=== PATIENT | female | born 1960 | race Caucasian/White ===

== ENCOUNTER → 2022-05-21 | Day surgery (SDC) | payer OTHER ==
--- NOTE | 2022-05-19 13:17 | RAD REPORT ---
EXAM DESCRIPTION: RAD - Chest Pa And Lat (2 Views) - 05/19/2022 1:10 pm CLINICAL HISTORY: pre op for surgery COMPARISON: No comparisons FINDINGS: Lines: None. Lungs: No evidence of edema or pneumonia. Pleural: No significant pleural effusions or pneumothorax. Cardiac: The heart size is within normal limits. Mediastinum: Within normal limits. Bones: No acute fractures. Other: None IMPRESSION: No acute cardiopulmonary disease.
[2022-05-19 13:45] LABS: Absolute Lymphocytes (CBC) 2.8 K/uL (0.7-4.9); Hematocrit 34.9 % (36.0-45.0); Lymphocytes % 40.4 % (15.3-44.8); MCV 78.8 fL (80-100); MPV 7.2 fL (7.6-11.3); RBC Red Blood Cell Count 4.43 M/uL (3.86-4.86)
[2022-05-19 13:48] LABS: Protime INR 0.97
--- NOTE | 2022-05-19 14:55 | EKG ---
Test Date: 2022-05-19 Test Time: 12:49:23 Rn Case Manager: TOYA MEASUREMENT RESULTS: Intervals: Rate: 54 IL: 158 QRSD: 90 QT: 440 QTc: 417 [place]: P: 23 IL: 158 QRS: 8 T: 24 INTERPRETIVE STATEMENTS: Sinus bradycardia Otherwise normal ECG Compared to ECG 03/09/2017 08:24:58 Sinus rhythm no longer present Sinus arrhythmia no longer present Electronically Signed On 05-19-22 14:54:45 [employer]STRUCTION [employer] by Yash Stearns
[~2022-05-21] MED LIST: BUPIVACAINE 0.25% PF 10 ML VIAL ONE; CEFAZOLIN SODIUM 1 GM/VIAL ONE; CEFAZOLIN SODIUM 2 GM/VIAL ONE; CODEINE 30MG/APAP 300MG TAB ONE; FENTANYL CITR 100 MCG/2 ML ONE; KETOROLAC 30 MG/ML INJ ONE; LIDOCAINE 1% MPF 5 ML VIAL ONE; MIDAZOLAM HCL 2 MG/2 ML INJ ONE; NS 0.9% VIAL 10 ML ONE; ONDANSETRON 4 MG/2 ML VIAL ONE; Ringers Lactate 1,000 ML IV ONE; SUCCINYLCHOLINE 20 MG/ML (10 ML) IV ONE; dexAMETHasone 10 MG/ML VIAL ONE; propofoL 200 MG/20 ML VIAL IV ONE
[2022-05-21] MEDS: HYDROMORPHONE HCL 1 MG/ML INJ ONE ×4 (12:34→12:50)
--- NOTE | 2022-05-21 12:38 | P.BOP ---
Preoperative diagnosis: right middle and ring finger trigger digits Postoperative diagnosis: same Primary procedure: right middle finger A1 maria esther release Secondary procedure: right ring finger A1 maria esther release Roller Picker: NONE,NONE Estimated blood loss: 3 cc Specimen: none Findings: see dictation Anesthesia: General Complications: None Implants: none Fluids & blood products: per anesthesia record; TT: 16 mins @ 250 mmHg Transferred to: Recovery Room Condition: Good
[2022-05-21 12:54] VITALS: TEMP 97.3
[2022-05-21 13:40] VITALS: BP 153/95; O2SAT 97
== END ==
LOC: OR 09:04
PROVIDERS: ATTEND Orthopaedic Surgery Sports Medicine
PROC: 0LN70ZZ Release Right Hand Tendon, Open Approach (ICD-10-PCS; 2022-05-21)
PROC: 0LN70ZZ Release Right Hand Tendon, Open Approach (ICD-10-PCS; principal; 2022-05-21 11:00)
DX: M65.331 Trigger finger, right middle finger (principal); M65.341 Trigger finger, right ring finger
CPT/HCPCS: 93005; 85025; 80048; 36415; 85610; 85730; 71046; 26055 ×2; J2704 ×2; J0330; J2001; J2250; J3010; J1100; A4216; J1170 ×2; J7120; J2405; J0690

== ENCOUNTER 2024-01-10 23:35 | Emergency (ER) | payer OTHER, SELFPAY ==
[2024-01-10] MEDS ORDERED: TDAP (DIPHTH,PERTUSS(ACELL),TET VAC) 0.5 ML VIAL IMVAC ONE (23:44)
[2024-01-10] MEDS ORDERED: DIAZEPAM 5 MG TABLET ONE (23:44)
[2024-01-10] MEDS ORDERED: LIDOCAINE 1% 20 ML MDV ONE (23:44)
[2024-01-10] MEDS ORDERED: NA CHLORIDE 0.9% 100 ML ONE (23:45)
[2024-01-10] MEDS ORDERED: CEFAZOLIN SODIUM 2 GM/VIAL ONE (23:45)
[2024-01-11 00:07] LABS: Absolute Basophils 0.1 K/uL (0-0.5); Absolute Eosinophils 0.2 K/uL (0-0.5); Absolute Lymphocytes (CBC) 3.5 K/uL (0.7-4.9); Absolute Monocytes 0.7 K/uL (0.1-1.3); Absolute Neutrophil 3.7 K/uL (1.8-8.0); Basophils % 1.1 % (0-1.3); Hematocrit 36.3 % (36.0-45.0); Hemoglobin 12.2 g/dL (12.0-15.0); Lymphocytes % 42.6 % (15.3-44.8); MCH 28.2 pg (27.0-35.0); MCHC 33.5 g/dL (32.0-36.0); MCV 84.1 fL (80-100); MPV 7.1 fL (7.6-11.3); Monocytes % 8.7 % (3.3-12.3); Neutrophils % 45.6 % (41.7-73.7); Nucleated Red Blood Cells % 0.2 % (0-0); Platelets 316 thou/uL (152-406); RBC Red Blood Cell Count 4.31 M/uL (3.86-4.86); Red Cell Distribution Width 17.4 % (12.1-15.2)
[2024-01-11 00:21] LABS: ALT/SGPT 24 U/L (13-56); AST/SGOT 27 U/L (15-37); Albumin 3.2 g/dL (3.4-5.0); Albumin/Globulin Ratio 0.7 (1.1-1.8); Alkaline Phosphatase 100 U/L (45-117); Anion Gap 12.1 mEq/L (5.0-15.0); BUN Blood Urea Nitrogen 7 mg/dL (7-18); Bicarbonate 23 mEq/L (21-32); Bilirubin Total 0.3 mg/dL (0.2-1.0); Globulin 4.3 g/dL (2.3-3.5); Glomerular Filtration Rate 81 ml/min (=/>90); Glucose Level 126 mg/dL (74-106); PTT, Activated Partial Thromb 26.6 SECONDS (24.3-36.9); Potassium 4.1 mEq/L (3.5-5.1); Protein, Total 7.5 g/dL (6.4-8.2); Protime INR 0.98; Sodium Level 131 mEq/L (136-145)
[2024-01-11 00:22] LABS: Bilirubin Direct < 0.2 mg/dL (0-0.2); Bilirubin Indirect, Calculated 0.1 mg/dL (0.2-0.8)
[2024-01-11] MEDS ORDERED: ACETAMINOPHEN 500 MG TAB ONE (00:47)
[2024-01-11] MEDS ORDERED: ONDANSETRON 4 MG/2 ML VIAL ONE (00:47)
[2024-01-11] MEDS ORDERED: MECLIZINE HCL 12.5 MG TAB ONE (02:16)
[2024-01-11 02:34] LABS: Renal Epithelial <5 /HPF (None Seen); Specific Gravity 1.009 (1.005-1.030); Sqamous Epithelial None Seen /HPF (None Seen); Urine Bacteria None Seen /HPF (<20); Urine Bilirubin NEGATIVE (Negative); Urine Blood Negative (Negative); Urine Clarity Clear (Clear); Urine Color Light-Yellow (Yellow); Urine Culture Reflex Order NOT NEEDED; Urine Glucose NEGATIVE (Negative); Urine Ketones NEGATIVE (Negative); Urine Microscopic Reflex YN ORDER UMIC; Urine Mucus Slight /HPF (None Seen); Urine Nitrite NEGATIVE (Negative); Urine Protein NEGATIVE (Negative); Urine RBC None Seen /HPF (None Seen); Urine Urobilinogen Normal (Normal); Urine WBC <5 /HPF (<5); Urine pH 5.5 (5.0-7.0)
[2024-01-11 02:52] LABS: Barbiturates NEGATIVE (NEGATIVE); Benzodiazepines POSITIVE (NEGATIVE); Cocaine NEGATIVE (NEGATIVE); METHAMPHETAM NEGATIVE (NEGATIVE); Methadone NEGATIVE (NEGATIVE); Opiates NEGATIVE (NEGATIVE); Phencyclidine NEGATIVE (NEGATIVE); THC Cannibis POSITIVE (NEGATIVE)
[2024-01-11] MEDS ORDERED: LORazepam 2 MG/ML VIAL ONE (03:07)
[2024-01-11] MEDS ORDERED: WATER FOR INJ,STERILE 0 ML ONE (03:07)
[2024-01-11] MEDS ORDERED: THIAMINE 200 MG/2 ML INJ ONE (03:52)
[2024-01-11] MEDS ORDERED: KETOROLAC 30 MG/ML INJ ONE (03:53)
[2024-01-11] MEDS ORDERED: METOCLOPRAMIDE 5 MG TAB ONE (03:53)
[2024-01-11] MEDS ORDERED: SMZ./TMP. 800/160 MG TABLET ONE (03:53)
--- NOTE | 2024-01-11 04:00 | EDPHYS ---
Physician Documentation [facility] Name: Fozia Lancaster Age: 63 yrs Sex: Female : 1960 Arrival Date: 01/10/2024 Time: 23:35 Bed 16 Private MD: ED Physician Jass Cain HPI: 01/09 23:36 This 63 yrs old Female presents to ER via Unassigned with complaints of sp4 suicide attempt . 01/10 03:52 63-year-old female presents with acute suicide attempt. Patient was upset about her sp4 finances and loss of job , she has dealt herself multiple lacerations to the left wrist via resource teacher knife at home. Patient then left and was down in a different part of town by the police who brought her here to the ER for evaluation. Patient is moderately intoxicated. Patient has multiple haphazard lacerations including 4 large sized lacerations to the left wrist palmar surface without arterial bleeding. There are also multiple smaller abrasions and shallow lacerations to the same area. No active bleeding. . Historical: - Allergies: 01/09 23:55 No Known Allergies; tm6 - Home Meds: 01/10 00:40 alendronate 70 mg oral tablet 1 tab every week [Active]; venlafaxine 150 mg oral tm6 Capsule, ER 24 hr 1 cap twice a day [Active]; propranolol 80 mg Oral tablet 2 times per day [Active]; glycopyrrolate 1 mg oral tablet 3 times per day [Active]; Vraylar 1.5 mg oral capsule nightly [Active]; rosuvastatin 5 mg oral tablet nightly [Active]; alprazolam 0.5 mg Oral tablet BID PRN [Active]; - PMHx: 01/09 23:55 Depression; internal tremors; Anxiety; Hypercholesterolemia; tm6 - PSHx: 23:56 Total abdominal hysterectomy; tm6 - Immunization history:: Client reports receiving the 2nd dose of the Covid vaccine. - Infectious Disease History:: Denies. - Social history:: Smoking status: Patient denies any tobacco usage or history of. Patient uses alcohol, on a daily basis. patient/guardian reports recent binge of alcohol consumption. 4 tall beers every day for several weeks. street drugs, marijuana. - Family history:: not pertinent. ROS: 01/10 03:52 Constitutional: Negative for fever, chills, and weight loss, depression, positive sp4 suicide attempt, positive multiple lacerations self-inflicted to the left wrist palmar surface All other systems are negative, Exam: 03:52 Constitutional: This is a well developed, well nourished patient who is awake, alert, sp4 and in no acute distress. Patient is moderately intoxicated Head/Face: Normocephalic, atraumatic. Eyes: Pupils equal round and reactive to light, extra-ocular motions intact. Lids and lashes normal. Conjunctiva and sclera are not injected. Cornea within normal limits. Periorbital areas with no swelling, redness, or edema. ENT: Nares patent. No nasal discharge, no septal abnormalities noted. Tympanic membranes are normal and external auditory canals are clear. Oropharynx with no redness, swelling, or masses, exudates, or evidence of obstruction, uvula midline. Mucous membranes moist. Neck: Trachea midline, no thyromegaly or masses palpated, and no cervical lymphadenopathy. Supple, full range of motion without nuchal rigidity, or vertebral point tenderness. Chest/axilla: Normal chest wall appearance and motion. Nontender with no deformity. No lesions are appreciated. Cardiovascular: Regular rate and rhythm with a normal S1 and S2. No gallops, murmurs, or rubs. Normal PMI, no JVD. No pulse deficits. Respiratory: Lungs have equal breath sounds bilaterally, clear to auscultation and percussion. No rales, rhonchi or wheezes noted. No increased work of breathing, no retractions or nasal flaring. Abdomen/GI: Soft, with normal bowel sounds. No distension or tympany. No guarding or rebound. No evidence of tenderness throughout. Back: No spinal tenderness. No costovertebral tenderness. Skin: Warm, dry with normal turgor. Normal color with no rashes, no lesions, and no evidence of cellulitis. MS/ Extremity: Pulses equal, no cyanosis. Neurovascular intact. Full, normal range of motion. There are 4 larger lacerations 4 to 5 cm each to the left wrist palmar surface without arterial bleeding. Multiple smaller abrasions and several shallow lacerations to the same area. Patient has preserved movement and strength of all the fingers and thumb, no sensory deficits, normal peripheral pulses, normal capillary refill. Vascular status of the left hand is intact Neuro: Awake and alert, GCS 15, oriented to person, place, time, and situation. Cranial nerves II-XII grossly intact. Motor strength 5/5 in all extremities. Sensory grossly intact. Psych: Awake, alert, with orientation to person, place and time. Behavior, mood, and affect are within normal limits 03:52 ECG was reviewed by the Attending Physician. EKG at 2355 sinus rhythm 100 bpm, sp4 otherwise normal Vital Signs: 01/09 23:45 BP 138 / 95; Pulse 107; Resp 18; Temp 98.4(O); Pulse Ox 97% on R/A; Weight 97.52 kg; oe Height 5 ft. 0 in. ; Pain 2/10; 01/10 04:35 BP 140 / 86; Pulse 89; Resp 17; Temp 98.5(O); Pulse Ox 96% on R/A; Pain 0/10; tm6 01/09 23:45 Body Mass Index 41.99 (97.52 kg, 152.4 cm) oe 01/09 23:45 Pain Scale: Adult oe 01/10 04:35 Pain Scale: Adult tm6 Dewy Rose Coma Score: 03:52 Eye Response: spontaneous(4). Motor Response: obeys commands(6). Verbal Response: sp4 oriented(5). Total: 15. Laceration: 04:00 Wound Repair of 5cm ( 2.0in ) subcutaneous laceration to left wrist = Palmar surface sp4 left wrist . Linear shaped.. Distal neuro/vascular/tendon intact. Anesthesia: Wound infiltrated with 10 mls of 1% lidocaine. Wound prep: Extensive cleansing by me, Copious irrigation. Skin closed with 9 4-0 Silk using running sutures and sterile technique. Dressed with 4x4's, Kerlix, non-adherent dressing. Patient tolerated well. 04:00 Wound Repair of 4cm ( 1.6in ) subcutaneous laceration to palmar aspect of left wrist - sp4 another laceration left wrist 4 cm long . Linear shaped.. Gross contamination.. Distal neuro/vascular/tendon intact. Anesthesia: Wound infiltrated with 10 mls of 1% lidocaine. Wound prep: Extensive cleansing by me, Copious irrigation. Skin closed with 9 4-0 Silk using running sutures and sterile technique. Dressed with 4x4's, Kerlix, non-adherent dressing. Patient tolerated well. 04:00 Wound Repair of 3.5cm ( 1.4in ) subcutaneous laceration to palmar aspect of left wrist sp4 - third laceration to wrist 3.5 cm long deep lact radial side of palmar wrist . Linear shaped.. Gross contamination.. Distal neuro/vascular/tendon intact. Anesthesia: Wound infiltrated with 10 mls of 1% lidocaine. Wound prep: Extensive cleansing by me, Copious irrigation. Skin closed with 8 4-0 Silk using running sutures and sterile technique. Dressed with 4x4's, Kerlix, non-adherent dressing. Patient tolerated well. 04:00 Wound Repair of 5cm ( 2.0in ) subcutaneous laceration to palmar aspect of left wrist - sp4 left wrist fourth laceration 5 cm long proximal left wrist palmar surface . Linear shaped.. Gross contamination.. Distal neuro/vascular/tendon intact. Anesthesia: Wound infiltrated with 10 mls of 1% lidocaine. Wound prep: Moderate cleansing by me, Copious irrigation. Skin closed with 12 4-0 Silk using running sutures and sterile technique. Dressed with 4x4's, Kerlix, non-adherent dressing. Patient tolerated well. MDM: 01/09 23:38 Patient medically screened. sp4 01/10 03:52 Differential diagnosis: drug withdrawal. acute psychotic break, depression, psychosis sp4 secondary to non-compliance. Data reviewed: vital signs, nurses notes, old medical records, lab test result(s), EKG. 04:00 Consideration of Admission/Observation Escalation of care including sp4 admission/observation considered. Management of patient was discussed with the following: Equipment Service Lead: Accepting psychiatrist at [facility] . ED course: Positive for multiple lacerations and abrasions to the left wrist palmar surface. No sign of arterial bleeding, no sign of nerve damage, neurovascular status of the left hand is intact. Lacerations were repaired. Other innumerable abrasions and shallow cuts were washed out and sterile dressing was applied. Patient advised for suture removal after 20 days.. 01/09 23:37 Order name: PT-INR; Complete Time: 02:13 sp4 01/09 23:37 Order name: Acetaminophen; Complete Time: 02:13 sp4 01/09 23:37 Order name: Basic Metabolic Panel; Complete Time: 02:13 sp4 01/09 23:37 Order name: CBC with Diff; Complete Time: 02:13 sp4 01/09 23:37 Order name: ETOH Level; Complete Time: 02:13 sp4 01/09 23:37 Order name: Hepatic Function; Complete Time: 02:13 sp4 01/09 23:37 Order name: Ptt, Activated; Complete Time: 02:13 sp4 01/09 23:37 Order name: Salicylate; Complete Time: 02:13 sp4 01/09 23:37 Order name: Urinalysis w/ reflexes; Complete Time: 03:47 sp4 01/09 23:37 Order name: Urine Drug Screen; Complete Time: 03:47 sp4 01/09 23:37 Order name: EKG; Complete Time: 23:38 sp4 01/09 23:37 Order name: EKG - Nurse/Tech; Complete Time: 00:05 sp4 01/09 23:37 Order name: IV Saline Lock; Complete Time: 23:53 sp4 01/09 23:37 Order name: Labs collected and sent; Complete Time: 23:53 sp4 01/09 23:37 Order name: Suicide Precautions; Complete Time: 00:29 sp4 01/09 23:37 Order name: Suicide Screening ([place]); Complete Time: 00:29 sp4 01/09 23:38 Order name: Dressing - Wound; Complete Time: 02:34 sp4 01/09 23:38 Order name: Gloves, Sterile; Complete Time: 02:34 sp4 01/09 23:38 Order name: Setup Suture Tray; Complete Time: 02:34 sp4 EC:52 Rate is 100 beats/min. Rhythm is regular, Normal Sinus Rhythm. QRS [place] is Normal. PA sp4 interval is normal. QRS interval is normal. QT interval is normal. No Q waves. T waves are Normal. No ST changes noted. Clinical impression: Normal ECG. Interpreted by me. Reviewed by me. Administered Medications: 01/09 23:53 Drug: Diazepam PO 10 mg PO once Route: PO; tm6 01/10 00:29 Drug: ceFAZolin IVPB 2 grams IVPB once over 30 mins; (mix in 100 mL NS) Route: IVPB; tm6 Infused Over: 30 mins; Site: left antecubital; 00:29 Drug: Boostrix Tdap IM 0.5 ml IM once; as a single dose Route: IM; Site: left deltoid; tm6 01:00 Drug: Acetaminophen PO 1000 mg PO once Route: PO; tm6 01:00 Drug: Ondansetron IVP 4 mg IVP once; over 2 minutes Route: IVP; Site: left antecubital; tm6 02:20 Drug: Meclizine PO 50 mg PO once Route: PO; tm6 02:34 Drug: Lidocaine Infiltration (1 %) 40 ml 20 ml Infiltration once; to bedside {Note: tm6 administered by MD.} Volume: 20 ml; Route: Infiltration; 03:12 Drug: LORazepam IM 2 mg IM once Route: IM; Site: right deltoid; tm6 04:00 Drug: Trimethoprim-Sulfamethoxazole PO (160 mg-800 mg (DS) 1 tablet PO once Route: PO; tm6 04:00 Drug: MetoCLOPramide PO 10 mg PO once Route: PO; tm6 04:00 Drug: Ketorolac IVP 30 mg IVP once Route: IVP; Site: left antecubital; tm6 04:00 Drug: Thiamine IV 100 mg IV at bolus once Route: IV; Rate: bolus; Site: left tm6 antecubital; Disposition Summary: 01/11/24 04:00 Transfer Ordered Notes: Transfer Location: [facility] Facility sp4 Reason: Higher level of care sp4 Condition: Stable sp4 Problem: new sp4 Symptoms: have improved sp4 Accepting Physician: Attending Psychiatrist (01/11/24 04:37) tm6 Diagnosis - Suicide attempt sp4 - Laceration without foreign body of left wrist sp4 - Acute depression, alcohol intoxication, left wrist laceration, multiple lacerations sp4 to left wrist , complicated laceration to the left wrist Discharge Instructions: - Discharge Summary Sheet kmf Forms: - Medication Reconciliation Form kmf - SBAR form kmf Signatures: Dispatcher [employer] Argelia Justice PA-C PA-C sb4 Potepalov, Sergey, MD MD sp4 Martha Neal RN RN tm6 Corrections: (The following items were deleted from the chart) 01/09 23:38 23:38 ACETAMINOPHEN+C.LAB.BRZ ordered. EDMS EDMS 23:38 23:38 BASIC METABOLIC PANEL+C.LAB.BRZ ordered. EDMS EDMS 23:38 23:38 CBC+H.LAB.BRZ ordered. EDMS EDMS 23:38 23:38 ETHANOL+C.LAB.BRZ ordered. EDMS EDMS 23:38 23:38 HEPATIC FUNCTION+C.LAB.BRZ ordered. EDMS EDMS 23:38 23:38 PTT, ACTIVATED+COAG.LAB.BRZ ordered. EDMS EDMS 23:38 23:38 SALICYLATE+C.LAB.BRZ ordered. EDMS EDMS 23:38 23:38 Urinalysis+U.LAB.BRZ ordered. EDMS EDMS 23:38 23:38 URINE DRUG SCREEN+UC.LAB.BRZ ordered. EDMS EDMS 01/10 04:37 04:00 Attending Psychiatrist sp4 tm6
--- NOTE | 2024-01-11 04:00 | ER ---
Nurse's Notes [facility] Name: Fozia Lancaster Age: 63 yrs Sex: Female : 1960 Arrival Date: 01/10/2024 Time: 23:35 Bed 16 Private MD: Diagnosis: Suicide attempt;Laceration without foreign body of left wrist;Acute depression, alcohol intoxication, left wrist laceration, multiple lacerations to left wrist , complicated laceration to the left wrist Presentation: 01/09 23:36 Chief complaint: [place] [employer]: patient sliced left wrist in apparent suicide attempt, lost tm6 a significant amount of blood. Coronavirus screen: Vaccine status: Patient reports receiving the 2nd dose of the covid vaccine. Ebola Screen: Patient negative for fever greater than or equal to 101.5 degrees Fahrenheit, and additional compatible Ebola Virus Disease symptoms Patient denies exposure to infectious person. Patient denies travel to an Ebola-affected area in the 21 days before illness onset. Initial Sepsis Screen: Does the patient meet any 2 criteria? HR > 90 bpm. No. Patient's initial sepsis screen is negative. Does the patient have a suspected source of infection? No. Patient's initial sepsis screen is negative. Risk Assessment: Do you want to hurt yourself or someone else? Patient reports desire/thoughts of hurting themselves or someone else. Provider notified. Onset of symptoms was January 10, 2024. 23:36 Method Of Arrival: Law Enforcement: [place] [employer] tm6 23:36 Acuity: ALEXI 2 tm6 Triage Assessment: 20:36 General: Appears in no apparent distress. Behavior is calm, cooperative. Pain: tm6 Complains of pain in palmar aspect of left wrist Pain currently is 2 out of 10 on a pain scale. EENT: No signs and/or symptoms were reported regarding the EENT system. Neuro: Level of Consciousness is awake, alert, obeys commands, Oriented to person, place, time, situation. Cardiovascular: Patient's skin is warm and dry. Rhythm is sinus rhythm. Respiratory: Airway is patent Respiratory effort is even, unlabored, Respiratory pattern is regular, symmetrical. GI: No signs and/or symptoms were reported involving the gastrointestinal system. Abdomen is round. : No signs and/or symptoms were reported regarding the genitourinary system. Derm: Wound noted palmar aspect of left wrist Wound is laceration to left wrist. Musculoskeletal: No signs and/or symptoms reported regarding the musculoskeletal system. Injury Description: Laceration sustained to palmar aspect of left wrist. Historical: - Allergies: 23:55 No Known Allergies; tm6 - Home Meds: 01/10 00:40 alendronate 70 mg oral tablet 1 tab every week [Active]; venlafaxine 150 mg oral tm6 Capsule, ER 24 hr 1 cap twice a day [Active]; propranolol 80 mg Oral tablet 2 times per day [Active]; glycopyrrolate 1 mg oral tablet 3 times per day [Active]; Vraylar 1.5 mg oral capsule nightly [Active]; rosuvastatin 5 mg oral tablet nightly [Active]; alprazolam 0.5 mg Oral tablet BID PRN [Active]; - PMHx: 01/09 23:55 Depression; internal tremors; Anxiety; Hypercholesterolemia; tm6 - PSHx: 23:56 Total abdominal hysterectomy; tm6 - Immunization history:: Client reports receiving the 2nd dose of the Covid vaccine. - Infectious Disease History:: Denies. - Social history:: Smoking status: Patient denies any tobacco usage or history of. Patient uses alcohol, on a daily basis. patient/guardian reports recent binge of alcohol consumption. 4 tall beers every day for several weeks. street drugs, marijuana. - Family history:: not pertinent. Screenin:36 [facility] ED Fall Risk Assessment (Adult) History of falling in the last 3 months, tm6 including since admission No falls in past 3 months (0 pts) Confusion or Disorientation No (0 pts) Intoxicated or Sedated No (0 pts) Impaired Gait No (0 pts) Mobility Assist Device Used No (0 pt) Altered Elimination No (0 pt) Score/Fall Risk Level 0 - 2 = Low Risk Oriented to surroundings, Maintained a safe environment, Educated pt \\T\\ family on fall prevention, incl call for assistance when getting out of bed. Abuse screen: Denies threats or abuse. Denies injuries from another. Nutritional screening: No deficits noted. Tuberculosis screening: No symptoms or risk factors identified. Assessment: 20:36 Reassessment: see triage assessment. tm6 01/10 00:30 Reassessment: patient provided with snack and water. tm6 01:00 Reassessment: patient lying in bed, has eyes closed. tm6 01:26 Reassessment: Jennifer from [facility] for nurse to nurse. vc1 02:10 Reassessment: patient stated she felt like she was going to have a panic attack, tm6 notified. 03:00 Reassessment: MD at bedside completing laceration repair. tm6 04:02 Reassessment: patient used restroom, then resting in bed. tm6 04:36 Reassessment: Patient appears in no apparent distress at this time. Patient and/or tm6 family updated on plan of care and expected duration. Pain level reassessed. Patient is alert, oriented x 3, equal unlabored respirations, skin warm/dry/pink. security brought patient belongings to patient. EMS picked up patient. Psych: 01/09 23:36 [place] Suicide Severity Screening: In the past month, have you wished you were tm6 or wished you could go to sleep and not wake up? Patient responds "yes." "In the past month, have you actually had any thoughts of killing yourself?" Patient responds "yes." "In your lifetime, have you ever done anything, started to do anything, or prepared to do anything to end your life?" Patient responds "yes." Patient reports suicidal intent within 3 past months. Subjective: Patient's mood is sad, hopeless, Delusions are denied, Hallucinations are denied Having thoughts of suicide. Plan for suicide is cut wrists. Objective: Patient is cooperative, Speech is normal, Affect is appropriate, Patient has mutilated themselves by laceration to left wrist. Interventions: Removed personal items and placed in bag. Patient placed in hospital gown. Searched person for dangerous items. Belonging list filled out. Safety Checks: Personal items have been removed. Door is open. No visitors are present at this time. Patient uses marijuana. Vital Signs: 23:45 BP 138 / 95; Pulse 107; Resp 18; Temp 98.4(O); Pulse Ox 97% on R/A; Weight 97.52 kg; oe Height 5 ft. 0 in. ; Pain 2/10; 01/10 04:35 BP 140 / 86; Pulse 89; Resp 17; Temp 98.5(O); Pulse Ox 96% on R/A; Pain 0/10; tm6 01/09 23:45 Body Mass Index 41.99 (97.52 kg, 152.4 cm) oe 01/09 23:45 Pain Scale: Adult oe 01/10 04:35 Pain Scale: Adult tm6 Corrina Coma Score: 03:52 Eye Response: spontaneous(4). Motor Response: obeys commands(6). Verbal Response: sp4 oriented(5). Total: 15. ED Course: 01/09 20:36 Arm band placed on right wrist. tm6 20:36 Patient has correct armband on for positive identification. Valuables inventory done. tm6 Locked in safe. suicide precautions. Provided Education on: plan of care. Noise minimized. Lights dimmed. Warm blanket given. 23:36 Patient arrived in ED. sb4 23:36 Jass Cain MD is Attending Physician. sp4 23:41 Martha Neal RN is Primary Nurse. tm6 23:48 Inserted saline lock: 22 gauge in left antecubital area, using aseptic technique. Blood oe collected. Flushed with 10 mL NS. 23:55 Triage completed. tm6 01/10 00:06 EKG done, by ED staff, reviewed by Jass Cain MD. oe 01:03 faxed pt clinical's to various psych facilities ([facility], [facility], [facility], [facility]). 02:34 Urinalysis w/ reflexes Sent. tm6 02:34 Urine Drug Screen Sent. tm6 03:45 [facility] called for patient transfer, ETA 15-20 mins. [facility] 04:00 Assist provider with laceration repair on palmar aspect of left wrist that was between tm6 2.6 to 7.5 cm using sutures. Set up tray. Performed by Jass Cain MD Dressed with 4X4s, Kerlix, Patient tolerated well. 04:37 IV discontinued, intact, bleeding controlled, No redness/swelling at site. Pressure tm6 dressing applied. Administered Medications: 01/09 23:53 Drug: Diazepam PO 10 mg PO once Route: PO; tm6 01/10 00:29 Drug: ceFAZolin IVPB 2 grams IVPB once over 30 mins; (mix in 100 mL NS) Route: IVPB; tm6 Infused Over: 30 mins; Site: left antecubital; 00:29 Drug: Boostrix Tdap IM 0.5 ml IM once; as a single dose Route: IM; Site: left deltoid; tm6 01:00 Drug: Acetaminophen PO 1000 mg PO once Route: PO; tm6 01:00 Drug: Ondansetron IVP 4 mg IVP once; over 2 minutes Route: IVP; Site: left antecubital; tm6 02:20 Drug: Meclizine PO 50 mg PO once Route: PO; tm6 02:34 Drug: Lidocaine Infiltration (1 %) 40 ml 20 ml Infiltration once; to bedside {Note: tm6 administered by MD.} Volume: 20 ml; Route: Infiltration; 03:12 Drug: LORazepam IM 2 mg IM once Route: IM; Site: right deltoid; tm6 04:00 Drug: Trimethoprim-Sulfamethoxazole PO (160 mg-800 mg (DS) 1 tablet PO once Route: PO; tm6 04:00 Drug: MetoCLOPramide PO 10 mg PO once Route: PO; tm6 04:00 Drug: Ketorolac IVP 30 mg IVP once Route: IVP; Site: left antecubital; tm6 04:00 Drug: Thiamine IV 100 mg IV at bolus once Route: IV; Rate: bolus; Site: left tm6 antecubital; Medication: 01/09 20:36 VIS not applicable for this client. tm6 Outcome: 01/10 04:00 ER care complete, transfer ordered by . sp4 04:36 Transferred by ground EMS tm6 04:36 Condition: stable 04:36 Instructed on the need for transfer, 04:37 Patient left the ED. tm6 Signatures: Kvng Howell Vanessa RN RN 1 Argelia Soriano, PA-C PA-C Jass Moon MD MD sp4 Patricia Pedroza [facility] Martha Neal RN RN tm6 Corrections: (The following items were deleted from the chart) 01/09 23:48 23:47 Inserted saline lock: 22 gauge in right antecubital area, using aseptic oe technique. Blood collected. Flushed with 10 mL NS oe
[2024-01-11 07:37] VITALS: BP 140/86; TEMP 98.5; O2SAT 96
--- NOTE | 2024-01-11 16:57 | EKG ---
Test Date: 2024-01-10 Test Time: 23:55:49 Certified Activities Director: SAMSON MEASUREMENT RESULTS: Intervals: Rate: 100 GA: 156 QRSD: 80 QT: 346 QTc: 446 [place]: P: 62 GA: 156 QRS: 31 T: 31 INTERPRETIVE STATEMENTS: Normal sinus rhythm Possible Anterior infarct, age undetermined Abnormal ECG Compared to ECG 05/19/2022 12:49:23 Myocardial infarct finding now present Sinus bradycardia no longer present Electronically Signed On 01-11-24 16:56:37 CDT by Yash Stearns
== END 2024-01-11 04:37 ==
LOC: ER 23:35
PROC: 0HQEXZZ Repair Left Lower Arm Skin, External Approach (ICD-10-PCS; principal; 2024-01-11)
DX: S61.512A Laceration without foreign body of left wrist, initial encounter (principal); X78.9XXA Intentional self-harm by unspecified sharp object, initial encounter; F32.A Depression, unspecified; F10.129 Alcohol abuse with intoxication, unspecified
CPT/HCPCS: 36415; 80048; 80076; 80143; 80179; 80307; 81001; 82077; 85025; 85610; 85730; 93005; 96372; 96374; 96375; 99285; J2001; J2405; J3411; J8597

== ENCOUNTER 2024-02-03 08:39 | Emergency (ER) | payer SELFPAY ==
--- NOTE | 2024-02-03 09:48 | ER ---
Nurse's Notes [facility] Name: Fozia Lancaster Age: 63 yrs Sex: Female : 1960 Arrival Date: 02/03/2024 Time: 08:39 Bed 12 Private MD: Diagnosis: Encounter for removal of sutures Presentation: 02/02 08:54 Chief complaint: Patient states: needs sutures removed from left wrist. Coronavirus iw screen: At this time, the client does not indicate any symptoms associated with coronavirus-19. Ebola Screen: No symptoms or risks identified at this time. Initial Sepsis Screen: Does the patient meet any 2 criteria? No. Patient's initial sepsis screen is negative. Does the patient have a suspected source of infection? No. Patient's initial sepsis screen is negative. Risk Assessment: Do you want to hurt yourself or someone else? Patient reports no desire to harm self or others. Onset of symptoms was January 10, 2024. 08:54 Method Of Arrival: Ambulatory iw 08:54 Acuity: ALEXI 4 iw Historical: - Allergies: 08:55 No Known Allergies; iw - PMHx: 08:55 Anxiety; Depression; Hypercholesterolemia; internal tremors; iw - PSHx: 08:55 Total abdominal hysterectomy; iw - Immunization history:: Adult Immunizations. - Infectious Disease History:: Denies. - Social history:: Smoking status: Patient denies any tobacco usage or history of. Screenin:07 [facility] ED Fall Risk Assessment (Adult) History of falling in the last 3 months, iw including since admission No falls in past 3 months (0 pts) Confusion or Disorientation No (0 pts) Intoxicated or Sedated No (0 pts) Impaired Gait No (0 pts) Mobility Assist Device Used No (0 pt) Altered Elimination No (0 pt) Score/Fall Risk Level 0 - 2 = Low Risk. Abuse screen: Denies injuries from another. Nutritional screening: No deficits noted. Tuberculosis screening: No symptoms or risk factors identified. Assessment: 09:06 General: Appears in no apparent distress. Behavior is calm, cooperative. Neuro: Level iw of Consciousness is awake, alert, obeys commands, Oriented to person, place, time, situation, Moves all extremities. Full function. Injury Description: Laceration sustained to left wrist sutures noted to multiple lacerations , redness around suture site, pt has finished round of antibiotics, initial injury was Jan 09. Vital Signs: 08:54 BP 175 / 103; Pulse 53; Resp 16; Temp 97; Pulse Ox 100% on R/A; Weight 95.25 kg; Height iw 5 ft. 0 in. ; 09:56 BP 187 / 102; Pulse 54; Resp 15; Pulse Ox 99% ; jl7 08:54 Body Mass Index 41.01 (95.25 kg, 152.4 cm) iw 09:56 Pt reports she'll check BP when she gets home and follow up with PCP if she needs to jl7 ED Course: 08:44 Patient arrived in ED. ra3 08:55 Triage completed. iw 08:56 Arm band placed on. iw 08:58 Yoel Pulido DO is Attending Physician. ms3 09:06 Dodie Bartholomew, RN is Primary Nurse. iw 09:47 Wenceslao Kingsley DO is Referral Physician. ms3 09:56 Patient has correct armband on for positive identification. Provided Education on: jl7 wound care. 09:56 No provider procedures requiring assistance completed. Patient did not have IV access jl7 during this emergency room visit. Removal of Removed sutures from left wrist. Administered Medications: No medications were administered Medication: 09:56 VIS not applicable for this client. jl7 Outcome: 09:48 Discharge ordered by . ms3 09:56 Discharged to home ambulatory, jl7 09:56 Condition: stable 09:56 Discharge instructions given to patient, Instructed on discharge instructions, follow up and referral plans. Demonstrated understanding of instructions, follow-up care, 09:58 Patient left the ED. jl7 Signatures: Dodie Bartholomew RN RN iw Sean Craig RN RN jl7 Yoel Pulido DO DO ms3 Geri Dumont ra3 Corrections: (The following items were deleted from the chart) 08:56 08:54 Pulse 53bpm; Resp 16bpm; Pulse Ox 100% RA; Temp 97F; 95.25 kg; Height 5 ft. 0 iw in.; BMI: 41.0; iw
--- NOTE | 2024-02-03 09:48 | EDPHYS ---
Physician Documentation [facility] Name: Fozia Lancaster Age: 63 yrs Sex: Female : 1960 Arrival Date: 02/03/2024 Time: 08:39 Bed 12 Private MD: ED Physician Yoel Pulido HPI: 02/02 11:27 This 63 yrs old Female presents to ER via Ambulatory with complaints of Suture Removal. ms3 11:27 63-year-old female past medical history of anxiety, depression, hypercholesterolemia, ms3 tremors presents to the emergency department for suture removal from her left wrist. Patient states sutures were placed after she cut her wrist. Patient states sutures have been in place for 22 days. Historical: - Allergies: 08:55 No Known Allergies; iw - PMHx: 08:55 Anxiety; Depression; Hypercholesterolemia; internal tremors; iw - PSHx: 08:55 Total abdominal hysterectomy; iw - Immunization history:: Adult Immunizations. - Infectious Disease History:: Denies. - Social history:: Smoking status: Patient denies any tobacco usage or history of. ROS: 11:27 Constitutional: Negative for fever, and chills. Cardiovascular: Negative for chest ms3 pain, and palpitations. Respiratory: Negative for shortness of breath, cough, wheezing, and pleuritic chest pain, Abdomen/GI: Negative for abdominal pain, nausea, vomiting, diarrhea, and constipation, MS/Extremity: Negative for injury and deformity, 11:27 Skin: Positive for Sutures in place, Exam: 11:27 Constitutional: This is a well developed, well nourished patient who is awake, alert, ms3 and in no acute distress. Head/Face: Normocephalic, atraumatic. Chest/axilla: Normal chest wall appearance and motion. Nontender with no deformity. Cardiovascular: Regular rate and rhythm with a normal S1 and S2. No gallops, murmurs, or rubs. Normal PMI, no JVD. No pulse deficits. Respiratory: Lungs have equal breath sounds bilaterally, clear to auscultation and percussion. No rales, rhonchi or wheezes noted. No increased work of breathing, no retractions or nasal flaring. Abdomen/GI: Soft, non-tender, with normal bowel sounds. No distension or tympany. No guarding or rebound. No evidence of tenderness throughout. 11:27 Skin: Left wrist with running suture in place. Vital Signs: 08:54 BP 175 / 103; Pulse 53; Resp 16; Temp 97; Pulse Ox 100% on R/A; Weight 95.25 kg; Height iw 5 ft. 0 in. ; 09:56 BP 187 / 102; Pulse 54; Resp 15; Pulse Ox 99% ; jl7 08:54 Body Mass Index 41.01 (95.25 kg, 152.4 cm) iw 09:56 Pt reports she'll check BP when she gets home and follow up with PCP if she needs to jl7 Procedures: 11:32 Suture/Staple removal: Removed Running suture, from left wrist, site appears well ms3 healed, reddened, dressed with gauze bandage, Patient tolerated well. MDM: 09:17 Patient medically screened. ms3 11:27 Data reviewed: vital signs, nurses notes, and as a result, I will discharge patient. ms3 Counseling: I had a detailed discussion with the patient and/or guardian regarding the historical points, exam findings, and any diagnostic results supporting the discharge/admit diagnosis, the need for outpatient follow up, to return to the emergency department if symptoms worsen or persist or if there are any questions or concerns that arise at home. Special discussion: I discussed with the patient/guardian in detail that at this point there is no indication for admission to the hospital. It is understood, however, that if the symptoms persist or worsen the patient needs to return immediately for re-evaluation. ED course: Sutures removed without wound dehiscence. Patient to follow-up with her primary care physician as needed. Discussed wound care with patient. All questions were answered. Return precautions discussed include worsening symptoms, or any other concerns.. Administered Medications: No medications were administered Disposition Summary: 02/03/24 09:48 Discharge Ordered Notes: Location: Home ms3 Condition: Stable ms3 Diagnosis - Encounter for removal of sutures ms3 Followup: ms3 - With: Wenceslao Kingsley DO - When: 2 - 3 days - Reason: Recheck today's complaints Discharge Instructions: - Discharge Summary Sheet ms3 - Suture Removal, Care After ms3 Forms: - Medication Reconciliation Form ms3 - Antibiotic Education ms3 - Prescription Opioid Use ms3 - Patient Portal Instructions ms3 - Leadership Thank You Letter ms3 Signatures: Dodie Bartholomew RN RN iw Yoel Pulido DO DO ms3 Corrections: (The following items were deleted from the chart) 11:33 11:27 Skin: Right wrist with running suture in place. ms3 ms3
[2024-02-03 10:03] VITALS: TEMP 97
[2024-02-03 10:05] VITALS: BP 187/102; O2SAT 99
== END 2024-02-03 09:58 | disposition home or self-care (01) ==
LOC: ER 08:39
DX: Z48.02 Encounter for removal of sutures (principal)

== ENCOUNTER 2024-06-13 10:25 | Emergency (ER) | payer OTHER, SELFPAY ==
[2024-06-13] MEDS ORDERED: NA CHLORIDE 0.9% 1,000 ML ONE (10:44)
[2024-06-13 11:22] LABS: Absolute Basophils 0.1 K/uL (0-0.5); Absolute Eosinophils 0.1 K/uL (0-0.5); Absolute Lymphocytes (CBC) 1.8 K/uL (0.7-4.9); Absolute Monocytes 0.6 K/uL (0.1-1.3); Absolute Neutrophil 3.8 K/uL (1.8-8.0); Basophils % 1.1 % (0-1.3); Eosinophils % 1.6 % (0-4.4); Hematocrit 40.6 % (36.0-45.0); Hemoglobin 13.6 g/dL (12.0-15.0); Lymphocytes % 28.7 % (15.3-44.8); MCH 28.3 pg (27.0-35.0); MCHC 33.6 g/dL (32.0-36.0); MCV 84.3 fL (80-100); MPV 7.2 fL (7.6-11.3); Monocytes % 10.1 % (3.3-12.3); Neutrophils % 58.5 % (41.7-73.7); Nucleated Red Blood Cells % 0.4 % (0-0); Platelets 351 thou/uL (152-406); RBC Red Blood Cell Count 4.81 M/uL (3.86-4.86); Red Cell Distribution Width 15.7 % (12.1-15.2)
[2024-06-13 11:24] LABS: Specific Gravity 1.005 (1.005-1.030); Sqamous Epithelial None Seen /HPF (None Seen); Urine Bacteria None Seen /HPF (<20); Urine Bilirubin NEGATIVE (Negative); Urine Blood Negative (Negative); Urine Clarity Turbid (Clear); Urine Color Light-Yellow (Yellow); Urine Culture Reflex Order NOT NEEDED; Urine Glucose NEGATIVE (Negative); Urine Ketones NEGATIVE (Negative); Urine Microscopic Reflex YN ORDER UMIC; Urine Nitrite NEGATIVE (Negative); Urine Protein NEGATIVE (Negative); Urine RBC <5 /HPF (None Seen); Urine Urobilinogen Normal (Normal); Urine WBC <5 /HPF (<5)
[2024-06-13 11:25] LABS: PT Prothrombin Time 11.1 SECONDS (9.4-12.5); PTT, Activated Partial Thromb 28.3 SECONDS (24.3-36.9); Protime INR 0.99
[2024-06-13 11:29] LABS: Barbiturates NEGATIVE (NEGATIVE); Benzodiazepines POSITIVE (NEGATIVE); Cocaine NEGATIVE (NEGATIVE); METHAMPHETAM NEGATIVE (NEGATIVE); Methadone NEGATIVE (NEGATIVE); Opiates NEGATIVE (NEGATIVE); Phencyclidine NEGATIVE (NEGATIVE); THC Cannibis NEGATIVE (NEGATIVE)
[2024-06-13 11:47] LABS: ALT/SGPT 28 U/L (13-56); AST/SGOT 38 U/L (15-37); Albumin 3.6 g/dL (3.4-5.0); Albumin/Globulin Ratio 0.8 (1.1-1.8); Alkaline Phosphatase 88 U/L (45-117); Anion Gap 14.7 mEq/L (5.0-15.0); BUN Blood Urea Nitrogen 6 mg/dL (7-18); Bicarbonate 23 mEq/L (21-32); Bilirubin Direct 0.3 mg/dL (0-0.2); Bilirubin Indirect, Calculated 0.6 mg/dL (0.2-0.8); Bilirubin Total 0.9 mg/dL (0.2-1.0); Globulin 4.6 g/dL (2.3-3.5); Glomerular Filtration Rate 79 ml/min (=/>90); Glucose Level 123 mg/dL (74-106); Potassium 3.7 mEq/L (3.5-5.1); Protein, Total 8.2 g/dL (6.4-8.2); Sodium Level 134 mEq/L (136-145)
--- NOTE | 2024-06-13 12:13 | ER ---
Nurse's Notes [facility] Name: Fozia Lancaster Age: 63 yrs Sex: Female : 1960 Arrival Date: 06/13/2024 Time: 10:25 Bed 19 Private MD: Diagnosis: Anxiety disorder, unspecified;Major depressive disorder, recurrent, moderate Presentation: 06/13 10:33 Chief complaint: EMS states: patient's last alcoholic drink was Thursday06/10/24. patient ap3 reports drinking approx a 6pk/day. patient is reporting an increase in her baseline tremors and being "out of my medications". Coronavirus screen: At this time, the client does not indicate any symptoms associated with coronavirus-19. Ebola Screen: No symptoms or risks identified at this time. Initial Sepsis Screen: Does the patient meet any 2 criteria? HR > 90 bpm. Does the patient have a suspected source of infection? No. Patient's initial sepsis screen is negative. Risk Assessment: Do you want to hurt yourself or someone else? Patient reports no desire to harm self or others. Onset of symptoms was June 13, 2024. Transition of care: patient was not received from another setting of care. 10:33 Method Of Arrival: EMS: [facility] ap3 10:33 Acuity: ALEXI 2 ap3 Triage Assessment: 10:38 General: Appears uncomfortable, Behavior is cooperative, anxious, restless. Neuro: ap3 Level of Consciousness is awake, alert, obeys commands, Oriented to person, place, time. Cardiovascular: Patient's skin is warm and dry. Respiratory: Airway is patent Respiratory effort is even, unlabored, Respiratory pattern is regular, symmetrical, tachypnea. GI: Reports nausea. Historical: - Allergies: 10:37 No Known Allergies; ap3 - PMHx: 10:37 Anxiety; Depression; Hypercholesterolemia; internal tremors; ap3 - Social history:: Smoking status: unknown Patient uses alcohol, on a daily basis. claims drinking about a 6 pack/day. Screenin:39 Abuse screen: Denies threats or abuse. Nutritional screening: No deficits noted. ap3 Tuberculosis screening: No symptoms or risk factors identified. 10:40 [facility] ED Fall Risk Assessment (Adult) History of falling in the last 3 months, ap3 including since admission Yes- fall prone (multiple falls) (3 pts) Confusion or Disorientation No (0 pts) Intoxicated or Sedated No (0 pts) Impaired Gait Yes (1 pt) Mobility Assist Device Used Yes (1 pt) Altered Elimination No (0 pt) Score/Fall Risk Level 3 or more points = High Risk Oriented to surroundings, Maintained a safe environment, Educated pt \\T\\ family on fall prevention, incl call for assistance when getting out of bed, Assessed \\T\\ reinforced patient's understanding of fall precautions, Provided non-skid footwear, Hourly rounding (assess needs \\T\\ fall precautionary measures) done, Used ambulatory aids as needed (educated on \\T\\ assisted with), Used gait belt as appropriate Implemented a Fall Risk Plan of Care, Apply high fall risk patient identification: yellow non skid footwear/ fall signage, Remained w/in arm's length of patient and in sight while toileting, Offered frequent toileting (1:1 observation), Remained with patient while ambulating. Assessment: 11:11 General: patient denies SI/HI . ap3 12:58 Reassessment: Pt verbalizes understanding discharge instructions, but is upset because ss she does not have a ride home and unable to fill her prescriptions. Pt given multiple community resources to assist with all needs after discharge. Dr. Sawant spoke to friend, Cassy and patient in depth regarding discharge/ follow up instructions. Vital Signs: 10:33 BP 164 / 101; Pulse 99; Resp 24; Temp 98.5(O); Pulse Ox 98% on R/A; ap3 ED Course: 10:29 Patient arrived in ED. bd 10:30 Eneida Sawant MD is Attending Physician. gb1 10:37 Triage completed. ap3 10:38 Bed in low position. Call light in reach. Side rails up X2. Provided Education on: call ap3 light within reach. Client placed on continuous cardiac and pulse oximetry monitoring. NIBP monitoring applied. monitoring coordinator on. Pulse ox on. NIBP on. 10:39 Arm band placed on right wrist. ap3 10:41 Rosalind Valdez, REMY is Primary Nurse. ap3 11:12 Initial lab(s) drawn, by me, sent to lab. EKG done, by ED staff, reviewed by Eneida Sawant MD. Inserted saline lock: 20 gauge in right forearm, using aseptic technique. Blood collected. Flushed with 10 mL NS. 11:13 Urine collected: clean catch specimen, clear. kb4 11:14 Acetaminophen Sent. kb4 11:14 Basic Metabolic Panel Sent. kb4 11:14 CBC with Diff Sent. kb4 11:14 ETOH Level Sent. kb4 11:14 Hepatic Function Sent. kb4 11:14 PT-INR Sent. kb4 11:14 Ptt, Activated Sent. kb4 11:14 Salicylate Sent. kb4 11:14 Urinalysis w/ reflexes Sent. kb4 11:14 Urine Drug Screen Sent. kb4 11:14 TSH Sent. kb4 13:38 No provider procedures requiring assistance completed. IV discontinued, intact, ss bleeding controlled, No redness/swelling at site. Pressure dressing applied. Administered Medications: 11:12 Drug: NS 0.9% IV 1000 ml IV at 1 bolus Per protocol; to be given as a bolus over 60 ap3 minutes Route: IV; Rate: 1 bolus; Site: right antecubital; Outcome: 12:12 Discharge ordered by MD. hansen 13:38 Discharged to home Pt called and called [facility] [employer] who states they will be at [employer] stop at 1333. Pt assisted to bus stop via wheelchair by Angel[employer] boiler/chiller technician 13:38 Condition: good 13:38 Discharge instructions given to patient, friend, Instructed on discharge instructions, follow up and referral plans. medication usage, Demonstrated understanding of instructions, follow-up care, medications, Prescriptions given X 1, 13:40 Patient left the ED. Signatures: Maura Corrigan Shelby, RN RN Rosalind Valdez RN RN ap3 Eneida Sawant MD MD gb1 Kacy Torres kb4
--- NOTE | 2024-06-13 12:13 | EDPHYS ---
Physician Documentation [facility] Name: Fozia Lancaster Age: 63 yrs Sex: Female : 1960 Arrival Date: 06/13/2024 Time: 10:25 Bed 19 Private MD: ED Physician Eneida Sawant HPI: 06/13 11:42 This 63 yrs old Female presents to ER via EMS with complaints of gb1 anxiety/depression. 11:42 63-year-old female called EMS for being anxious and states that she has been more gb1 depressed since she moved in with her roommate yesterday. She is he drinks a sixpack of beer daily and she has not had any alcohol for 2 days. She states that she is out of her medications that she takes for alcohol withdrawal. She has history of anxiety, depression, hyperlipidemia and tremors. She states that she has no family at all living around her and she recently was cited with a traffic ticket for [employer] and has a court appearance tomorrow. Patient denies any headache, chest pain, shortness of breath, vomiting or diarrhea. Denies any narcotic or illicit street drug abuse.. Historical: - Allergies: 10:37 No Known Allergies; ap3 - PMHx: 10:37 Anxiety; Depression; Hypercholesterolemia; internal tremors; ap3 - Social history:: Smoking status: unknown Patient uses alcohol, on a daily basis. claims drinking about a 6 pack/day. Exam: 11:42 Constitutional: This is a well developed, well nourished patient who is awake, alert, gb1 and in no acute distress. Head/Face: Normocephalic, atraumatic. Eyes: Pupils equal round and reactive to light, extra-ocular motions intact. Lids and lashes normal. Conjunctiva and sclera are non-icteric and not injected. Cornea within normal limits. Periorbital areas with no swelling, redness, or edema. ENT: Nares patent. No nasal discharge, no septal abnormalities noted. Tympanic membranes are normal and external auditory canals are clear. Oropharynx with no redness, swelling, or masses, exudates, or evidence of obstruction, uvula midline. Mucous membranes moist. Neck: Trachea midline, no thyromegaly or masses palpated, and no cervical lymphadenopathy. Supple, full range of motion without nuchal rigidity, or vertebral point tenderness. No Meningismus. Chest/axilla: Normal chest wall appearance and motion. Nontender with no deformity. No lesions are appreciated. Cardiovascular: Tachycardic rate and rhythm with a normal S1 and S2. No gallops, murmurs, or rubs. Normal PMI, no JVD. No pulse deficits. Respiratory: Lungs have equal breath sounds bilaterally, clear to auscultation and percussion. No rales, rhonchi or wheezes noted. No increased work of breathing, no retractions or nasal flaring. Abdomen/GI: Soft, non-tender, with normal bowel sounds. No distension or tympany. No guarding or rebound. No evidence of tenderness throughout. Back: No spinal tenderness. No costovertebral tenderness. Full range of motion. Skin: Warm, dry with normal turgor. Normal color with no rashes, no lesions, and no evidence of cellulitis. MS/ Extremity: Pulses equal, no cyanosis. Neurovascular intact. Full, normal range of motion. Neuro: Awake and alert, GCS 15, oriented to person, place, time, and situation. Cranial nerves II-XII grossly intact. Motor strength 5/5 in all extremities. Sensory grossly intact. Cerebellar exam normal. Normal gait. Psych: Awake, alert, with orientation to person, place and time. Patient appears tearful and anxious. Vital Signs: 10:33 BP 164 / 101; Pulse 99; Resp 24; Temp 98.5(O); Pulse Ox 98% on R/A; ap3 MDM: 10:30 Medical Screening Exam initiated gb1 11:42 Data reviewed: vital signs, nurses notes, EMS record, lab test result(s), EKG, gb1 Patient's EKG shows normal sinus rhythm tachycardic rate at 102 bpm. She has some nonspecific ST-T wave changes with some inverted T waves in aVR.. 12:17 ED course: 63-year-old female likely with an acute exacerbation of anxiety and gb1 depression secondary to recently being homeless and finding a roommate that she does not necessarily feel comfortable living with her. Patient denies any thoughts or plans of self-harm she has no access to any firearms and at this time is not attempted to take her life. She is not hearing any voices, and she has no command direction to try to harm herself or anybody else. Patient has 2 brothers on her medical facesheet that we have contacted for support. Patient is also very stressed due to her court date tomorrow that she has for a DUI. Patient at this time is awake alert clinically improved showing no signs of active alcohol withdrawal. I have recommended Librium for her as needed at discharge. She is supposed to be taking naltrexone but she is out of that medication and is not taking it at this time. Patient also denies any illicit narcotics or street drugs that she is using. I will discharge her home when her ride arrives.. 06/13 10:32 Order name: Acetaminophen; Complete Time: 11:49 06/13 10:32 Order name: Basic Metabolic Panel; Complete Time: 06/13 10:32 Order name: CBC with Diff; Complete Time: :06/13 10:32 Order name: ETOH Level; Complete Time: 11:34 06/13 10:32 Order name: Hepatic Function; Complete Time: 06/13 10:32 Order name: PT-INR; Complete Time: :06/13 10:32 Order name: Ptt, Activated; Complete Time: 11:06/13 10:32 Order name: Salicylate; Complete Time: :06/13 10:32 Order name: Urinalysis w/ reflexes; Complete Time: :06/13 10:32 Order name: Urine Drug Screen; Complete Time: 11:34 06/13 10:32 Order name: TSH; Complete Time: :06/13 10:32 Order name: EKG - Nurse/Tech; Complete Time: 11:06/13 10:32 Order name: IV Saline Lock; Complete Time: 11:06/13 10:32 Order name: Labs collected and sent; Complete Time: 11:14 06/13 10:32 Order name: Suicide Screening ([place]); Complete Time: 11: Administered Medications: 11:12 Drug: NS 0.9% IV 1000 ml IV at 1 bolus Per protocol; to be given as a bolus over 60 ap3 minutes Route: IV; Rate: 1 bolus; Site: right antecubital; Disposition Summary: 06/13/24 12:12 Discharge Ordered Notes: Location: Home gb1 Problem: chronic gb1 Symptoms: are unchanged gb1 Condition: Stable gb1 Diagnosis - Anxiety disorder, unspecified gb1 - Major depressive disorder, recurrent, moderate gb1 Followup: gb1 - With: Private Physician - When: - Reason: Further diagnostic work-up Discharge Instructions: - Discharge Summary Sheet gb1 - Panic Attack, [id number] gb1 - Major Depressive Disorder, Adult gb1 Forms: - Medication Reconciliation Form gb1 - Antibiotic Education gb1 - Prescription Opioid Use gb1 - Patient Portal Instructions gb1 - Leadership Thank You Letter gb1 Prescriptions: - chlordiazepoxide HCl 5 mg laryngotracheal capsule - take 1 capsule ORAL route every 6 to 8 hours as needed for anxiety; 30 capsule; gb1 Refills: 0, Product Selection Permitted Signatures: Dispatcher [employer] Rosalind Mena RN RN ap3 Eneida Sawant MD MD gb1 Corrections: (The following items were deleted from the chart) 10:33 10:33 ACETAMINOPHEN+C.LAB.BRZ ordered. EDMS EDMS 10:33 10:33 BASIC METABOLIC PANEL+C.LAB.BRZ ordered. EDMS EDMS 10:33 10:33 CBC+H.LAB.BRZ ordered. EDMS EDMS 10:33 10:33 ETHANOL+C.LAB.BRZ ordered. EDMS EDMS 10:33 10:33 HEPATIC FUNCTION+C.LAB.BRZ ordered. EDMS EDMS 10:33 10:33 PROTIME (+INR)+COAG.LAB.BRZ ordered. EDMS EDMS 10:33 10:33 PTT, ACTIVATED+COAG.LAB.BRZ ordered. EDMS EDMS 10:33 10:33 SALICYLATE+C.LAB.BRZ ordered. EDMS EDMS 10:33 10:33 Urinalysis+U.LAB.BRZ ordered. EDMS EDMS 10:33 10:33 URINE DRUG SCREEN+UC.LAB.BRZ ordered. EDMS EDMS
[2024-06-13 13:50] VITALS: BP 164/101; TEMP 98.5; O2SAT 98
--- NOTE | 2024-06-20 11:10 | EKG ---
Test Date: 2024-06-13 Test Time: 10:45:30 Media Associate: TOYA MEASUREMENT RESULTS: Intervals: Rate: 104 MO: 164 QRSD: 82 QT: 356 QTc: 468 [place]: P: 49 MO: 164 QRS: 23 T: 20 INTERPRETIVE STATEMENTS: Sinus tachycardia Possible Anterior infarct, age undetermined Abnormal ECG Compared to ECG 06/13/2024 10:44:54 No significant changes Electronically Signed On 06-20-24 11:00:19 OPERATIONS RESEARCH SCIENTIST by Gilles Garrett
--- NOTE | 2024-06-20 11:10 | EKG ---
Test Date: 2024-06-13 Test Time: 10:44:54 Disassembler: TOYA MEASUREMENT RESULTS: Intervals: Rate: 102 NC: 168 QRSD: 76 QT: 348 QTc: 453 [place]: P: 53 NC: 168 QRS: 28 T: 25 INTERPRETIVE STATEMENTS: Sinus tachycardia Anterior infarct, age undetermined Abnormal ECG Compared to ECG 01/10/2024 23:55:49 Sinus rhythm no longer present Myocardial infarct finding still present Electronically Signed On 06-20-24 11:00:22 SENIOR APPLICATIONS ENGINEER by Gilles Garrett
== END 2024-06-13 13:40 | disposition home or self-care (01) ==
LOC: ER 10:25
DX: F41.9 Anxiety disorder, unspecified (principal); F33.9 Major depressive disorder, recurrent, unspecified; E78.00 Pure hypercholesterolemia, unspecified; F10.90 Alcohol use, unspecified, uncomplicated
CPT/HCPCS: 93005 ×2; 85025; 81001; 80048; 36415; 85610; 80076; 85730; 84443; 80307; 99285; 80143; 80179; 82077; J7030